=== PATIENT | female | born 1955 | race Caucasian/White ===

== ENCOUNTER 2018-01-25 16:49 | Emergency (ER) | payer OTHER | END 2018-01-25 18:10 | disposition home or self-care (01) | LOC: E/R 16:49 | DX: J20.9 Acute bronchitis, unspecified (principal); Z85.3 Personal history of malignant neoplasm of breast | CPT/HCPCS: 99284; Z7502 ==

== ENCOUNTER 2018-01-27 09:57 | Emergency (ER) | payer OTHER | END 2018-01-27 10:50 | disposition home or self-care (01) | LOC: FTE 09:57 | DX: J06.9 Acute upper respiratory infection, unspecified (principal); Z85.3 Personal history of malignant neoplasm of breast | CPT/HCPCS: 71045; 99283-25 ==

== ENCOUNTER 2018-05-20 15:52 | Emergency (ER) | payer OTHER ==
[2018-05-20] MEDS: TETRACAINE 0.5% 4 ML OPH LEFT EYE (18:18)
[2018-05-20] MEDS: FLUORESCEIN STRIP LEFT EYE (18:18)
== END 2018-05-20 20:46 | disposition home or self-care (01) ==
LOC: FTE 15:52
DX: H57.12 Ocular pain, left eye (principal); Z85.3 Personal history of malignant neoplasm of breast
CPT/HCPCS: 70480; 76536; 99285-25

== ENCOUNTER 2018-12-23 15:18 | Emergency (ER) | payer OTHER ==
[2018-12-23] MEDS: ONDANSETRON (ODT) 4 MG TAB ODT (16:45)
[2018-12-23] MEDS: morphine 4 MG/ML VIAL IM (16:45)
== END 2018-12-23 17:07 | disposition home or self-care (01) ==
LOC: FTE 17:07
DX: M54.5 Low back pain (principal); Z85.3 Personal history of malignant neoplasm of breast
CPT/HCPCS: 96372; 99284-25

== ENCOUNTER 2019-03-27 13:43 | Observation (INO) | payer OTHER ==
[2019-03-27 14:09] LABS: ADD MAN DIFF? NO
[2019-03-27 14:15] LABS: WHITE BLOOD COUNT 8.7 10^3/ul (4.8-10.8)
[2019-03-27 14:15] LABS: BASOPHILS % 0.5 % (0.0-2.0); EOSINOPHILS # 0.1 10^3/ul (0.0-0.5); EOSINOPHILS % 1.4 % (0.0-7.0); HEMATOCRIT 38.7 % (37.0-47.0); HEMOGLOBIN 12.2 g/dl (12.0-16.0); LYMPHOCYTES # 3.8 10^3/ul (0.8-2.9); LYMPHOCYTES % 43.7 % (15.0-51.0); MEAN CORPUSCULAR HEMOGLOBIN 26.7 pg (29.0-33.0); MEAN CORPUSCULAR HGB CONC 31.5 g/dl (32.0-37.0); MEAN CORPUSCULAR VOLUME 84.7 fl (82.0-101.0); MEAN PLATELET VOLUME 10.6 fl (7.4-10.4); MONOCYTE # 0.5 10^3/ul (0.3-0.9); MONOCYTES % 6.1 % (0.0-11.0); NEUTROPHIL # 4.2 10^3/ul (1.6-7.5); NEUTROPHILS % 48.1 % (39.0-77.0); PLATELET COUNT 284 10^3/UL (140-415); RED BLOOD COUNT 4.57 10^6/ul (4.20-5.40); RED CELL DISTRIBUTION WIDTH 14.1 % (11.5-14.5)
[2019-03-27] MEDS: SOD CHLORIDE 0.9% 500 ML IV (14:28)
[2019-03-27] MEDS: LORAZEPAM 2 MG INJ IV (14:28)
[2019-03-27 14:35] LABS: ALANINE AMINOTRANSFERASE 39 IU/L (13-69); ALBUMIN 4.4 g/dl (3.3-4.9); ALBUMIN/GLOBULIN RATIO 1.29; ALKALINE PHOSPHATASE 103 IU/L (42-121); ANION GAP 8 (5-13); ASPARTATE AMINO TRANSFERASE 40 IU/L (15-46); BILIRUBIN,INDIRECT 0.3 mg/dl (0-1.1); BILIRUBIN,TOTAL 0.3 mg/dl (0.2-1.3); BLOOD UREA NITROGEN 13 mg/dl (7-20); CALCIUM 9.4 mg/dl (8.4-10.2); CARBON DIOXIDE 28 mmol/L (21-31); CHLORIDE 106 mmol/L (97-110); CHOLESTEROL 204 mg/dl (100-200); CREATININE 0.58 mg/dl (0.44-1.00); Estimated GFR > 60 mL/min (>60); GLUCOSE 128 mg/dl (70-220); HDL CHOLESTEROL 50 mg/dl (35-98); LDL CHOLESTEROL,CALCULATED 126 mg/dl; POTASSIUM 4.2 mmol/L (3.5-5.1); SODIUM 142 mmol/L (135-144); TOTAL PROTEIN 7.8 g/dl (6.1-8.1); TRIGLYCERIDES 141 mg/dl (0-149)
[2019-03-27 14:38] LABS: HEMOGLOBIN A1C 5.5 % (0-5.9)
[2019-03-27 14:41] LABS: INR 0.94; PROTIME 12.7 Sec (11.9-14.9)
[2019-03-27 14:42] LABS: PARTIAL THROMBOPLASTIN TIME 32.1 Sec (23.0-35.0)
[2019-03-27 14:48] LABS: TROPONIN-I < 0.012 ng/ml (0.000-0.120)
[2019-03-27] MEDS ORDERED: ACETAMINOPHEN 325 MG TAB PO ×2 (15:30→17:00)
[2019-03-27] MEDS ORDERED: ONDANSETRON 4 MG INJ IV ×2 (15:30→17:00)
[2019-03-27] MEDS ORDERED: NACL 0.9% 3 ML SYG IV (17:00)
[2019-03-27] MEDS ORDERED: ZOLPIDEM 5 MG TAB PO (17:00)
[2019-03-27] MEDS ORDERED: morphine 2 MG INJ IV (17:00)
[2019-03-27] MEDS ORDERED: HYDROCODONE/APAP (5/325) TAB PO (17:00)
[2019-03-27] MEDS ORDERED: DOCUSATE SODIUM 100 MG CAP PO (17:00)
[2019-03-27] MEDS ORDERED: ALPRAZOLAM 0.5 MG TAB PO (17:30)
[2019-03-27] MEDS ORDERED: IBUPROFEN 600 MG TAB PO (17:30)
[2019-03-27] MEDS ORDERED: BENZONATATE 100 MG CAP PO (17:30)
[2019-03-27] MEDS: ASPIRIN (EC) 325 MG TAB PO (18:18)
[2019-03-27] MEDS: 1/2 NS + KCL 20 MEQ 1,000 ML IV (18:19)
[2019-03-27] MEDS: ENOXAPARIN 40 MG/0.4 ML SYG SC (18:26)
[2019-03-27] MEDS: BACLOFEN 10 MG TAB PO (21:41)
[2019-03-27] MEDS: ATORVASTATIN 40 MG TAB PO (21:41)
[2019-03-28] MEDS: 1/2 NS + KCL 20 MEQ 1,000 ML IV ×2 (05:33→11:57)
[2019-03-28] MEDS: LEVOTHYROXINE 112 MCG TAB PO (06:24)
[2019-03-28 06:47] LABS: WHITE BLOOD COUNT 6.2 10^3/ul (4.8-10.8)
[2019-03-28 06:47] LABS: ADD MAN DIFF? NO; BASOPHIL # 0.1 10^3/ul (0.0-0.1); BASOPHILS % 0.8 % (0.0-2.0); EOSINOPHILS # 0.2 10^3/ul (0.0-0.5); EOSINOPHILS % 2.9 % (0.0-7.0); HEMATOCRIT 34.7 % (37.0-47.0); HEMOGLOBIN 10.9 g/dl (12.0-16.0); LYMPHOCYTES # 3.7 10^3/ul (0.8-2.9); LYMPHOCYTES % 59.8 % (15.0-51.0); MEAN CORPUSCULAR HGB CONC 31.4 g/dl (32.0-37.0); MEAN CORPUSCULAR VOLUME 85.9 fl (82.0-101.0); MEAN PLATELET VOLUME 10.2 fl (7.4-10.4); MONOCYTE # 0.5 10^3/ul (0.3-0.9); MONOCYTES % 7.4 % (0.0-11.0); NEUTROPHIL # 1.8 10^3/ul (1.6-7.5); NEUTROPHILS % 28.9 % (39.0-77.0); PLATELET COUNT 249 10^3/UL (140-415); RED BLOOD COUNT 4.04 10^6/ul (4.20-5.40); RED CELL DISTRIBUTION WIDTH 14.3 % (11.5-14.5)
[2019-03-28 07:20] LABS: ANION GAP 5 (5-13); BLOOD UREA NITROGEN 9 mg/dl (7-20); CALCIUM 8.6 mg/dl (8.4-10.2); CARBON DIOXIDE 27 mmol/L (21-31); CHLORIDE 111 mmol/L (97-110); CHOL/HDL RATIO 4.7 RATIO; CHOLESTEROL 177 mg/dl (100-200); CREATININE 0.56 mg/dl (0.44-1.00); Estimated GFR > 60 mL/min (>60); GLUCOSE 83 mg/dl (70-220); HDL CHOLESTEROL 37 mg/dl (35-98); LDL CHOLESTEROL,CALCULATED 105 mg/dl; PHOSPHORUS 3.1 mg/dl (2.5-4.9); POTASSIUM 4.2 mmol/L (3.5-5.1); SODIUM 143 mmol/L (135-144); TRIGLYCERIDES 176 mg/dl (0-149)
[2019-03-28] MEDS: ASPIRIN (EC) 325 MG TAB PO (08:11)
[2019-03-28 08:29] LABS: HEMOGLOBIN A1C 5.4 % (0-5.9)
[2019-03-28] MEDS: ENOXAPARIN 40 MG/0.4 ML SYG SC (13:29)
== END 2019-03-28 16:48 | disposition home or self-care (01) ==
LOC: E/R 13:43 → TEL 15:26
DX: R53.1 Weakness (principal); E03.9 Hypothyroidism, unspecified; F41.9 Anxiety disorder, unspecified; E66.9 Obesity, unspecified; Z68.30 Body mass index [BMI] 30.0-30.9, adult; Z85.3 Personal history of malignant neoplasm of breast; Z92.21 Personal history of antineoplastic chemotherapy
CPT/HCPCS: 70450; 70552; 71045; 80048; 80053; 80061; 82962; 83036; 83735; 84100; 84484; 85025; 85610; 85730; 86850; 86900; 86901; 92610; 93005; 93306; 93880; 96374; 97161; 99285-25; G0378